=== PATIENT | female | born 1955 | race African-American/Black ===

== ENCOUNTER 2017-02-14 10:31 | Emergency (ER) | payer OTHER ==
[~2017-02-14] VITALS: Ht 167.6 cm; Wt 98.2 kg
[~2017-02-14 10:31] MED LIST: ATEN-138 PO; LIRA0.6P SQ; LISI10TA PO; glyburide PO; neurontin PO
[2017-02-14 10:51] VITALS: Ht 167.6 cm; Wt 98.2 kg
--- NOTE | 2017-02-14 13:24 | RADRPT ---
PROCEDURE: US Lower extremity Venous. CLINICAL INDICATION: Right leg pain TECHNIQUE: Multiple sonographic images of the right lower extremity deep venous system was obtaine d utilizing grayscale, color-flow, compressive sonography and doppler imaging with augmentation. Th e images were reviewed on a PACS workstation. COMPARISON: None. FINDINGS: There is normal compressibility and flow within the right common femoral, femoral, posterior tibial, peroneal and popliteal veins. RPTAT: AA IMPRESSION: No sonographic evidence for deep venous thrombosis. .Ran Webster MD, MD Date Time Electronically viewed and signed by .Ran Webster MD, MD on 02/14/2017 13:24 .S/
--- NOTE | 2017-02-14 13:40 | RADRPT ---
PROCEDURE: XR Foot 3 Views. CLINICAL INDICATION: Right foot pain TECHNIQUE: AP, oblique and lateral views of the right foot were obtained. The images were reviewe d on a PACS workstation. COMPARISON: None. FINDINGS: Diffuse osteopenia is identified. The osseous structures appear intact. No destructive bony lesion s are identified. Interosseous spaces are normal. Moderate sized plantar calcaneal heel spur is see n. Small Achilles insertion heel spur is noted. Soft tissues surrounding the foot appear unremarkab le. IMPRESSION: Osteopenia. Plantar calcaneal and Achilles insertion heel spurs. If further characterization is needed CT or MRI could be helpful. RPTAT: AA .Willie Mclain MD, MD Date Time Electronically viewed and signed by .Wilile Mclain MD, on 02/14/2017 13:40 .P/
--- NOTE | 2017-02-14 13:42 | RADRPT ---
PROCEDURE: XR Foot 3 Views. CLINICAL INDICATION: Left foot pain TECHNIQUE: AP, oblique and lateral views of the left foot were obtained. The images were reviewed on a PACS workstation. COMPARISON: None. FINDINGS: Diffuse osteopenia is identified. The osseous structures appear intact. 10 mm calcification is rhett ntified adjacent to the tip of the lateral malleolus. No destructive bony lesions are identified. Mild narrowing of the metatarsal phalangeal joint is seen. Small plantar calcaneal and Achilles ins ertion heel spurs are noted. Soft tissues surrounding the foot appear unremarkable. IMPRESSION: Osteopenia. Corticated calcification adjacent to the tip of the medial malleolus. This could reflect heterotopi c calcification, ligamentous calcification or potentially the sequelae of nonunion of an old fractur e. If further characterization is needed CT could be helpful. Mild degenerative changes at the first metatarsal phalangeal joint. If further characterization is needed CT or MRI could be helpful. RPTAT: AA .Willie Mclain MD, MD Date Time Electronically viewed and signed by .Willie Mclain MD, on 02/14/2017 13:42 .P/
--- NOTE | 2017-02-14 13:44 | ERD ---
ER Documentation Chief Complaint Date/Time DATE: 02/14/17 TIME: 13:41 Chief Complaint BILATERAL FOOT PAIN, HX DIABETES HPI This is a very pleasant 61-year-old female history of diabetes, peripheral neuropathy presents with bilateral foot pain. The patient describes bilateral foot pain for several weeks. She has noted intermittent swelling to the right lower extremity without calf pain. No recent travel or immobilization. The pain is mostly to the plantar surface of the bilateral feet. She denies any trauma, fevers or chills or wounds. ROS All systems reviewed and are negative except as per history of present illness. Medications Home Meds Reported Medications [neurontin] 300 MG No Conflict Check, PO TID 04/24/13 Lisinopril* (Prinivil*) 10 Mg Tablet, PO DAILY 04/24/13 [glyburide] 10 MG No Conflict Check, PO BID 04/24/13 Liraglutide (Victoza 2-Sachin) 0.6 Mg/0.1 Ml Pen.injctr, 0.6 MG SQ DAILY 10/01/11 Atenolol (Tenormin) 25 Mg Tab, PO DAILY, 0 Refills 06/19/10 Allergies Allergies: Coded Allergies: Penicillins (Verified Allergy, Unknown, 07/31/14) PMhx/Soc History of Surgery: Yes (CHOLECYSTECTOMY, OVRAIAN CYST REMOVAL) Anesthesia Reaction: No Hx Neurological Disorder: Yes (NEUROPATHY) Hx Respiratory Disorders: No Hx Cardiac Disorders: Yes (HTN) Hx Psychiatric Problems: Yes (ANXIETY/DEPRESSION) Hx Miscellaneous Medical Probl: Yes (SEASONAL ALLERGIES) Hx Alcohol Use: No Hx Substance Use: No Hx Tobacco Use: No FmHx Family History: diabetes Physical Exam Vitals Vital Signs Date Time Temp Pulse Resp B/P Pulse Ox O2 Delivery O2 Flow Rate FiO2 02/14/17 10:51 98.8 72 16 154/78 96 Physical Exam General: Well developed, well nourished, no acute distress Head: Normocephalic, atraumatic. Eyes: Pupils equally reactive, EOM intact ENT: Moist mucous membranes Neck: Supple, no lymphadenopathy Respiratory: Lungs clear bilaterally, no distress Cardiovascular: RRR, no murmurs, rubs, or gallops Abdominal: Soft, non-tender, non-distended, no peritoneal signs : Deferred MSK: Bilateral feet are well-appearing without return of the skin. 2+ dorsalis pedis and posterior tibial pulses. No temperature deficits. Negative Homans sign bilaterally. No unilateral swelling. No edema. No bony abnormalities but soft tissue tenderness along the plantar surface of bilateral feet. Neurologic: Alert and oriented, moving all extremities, normal speech, no focal weakness, no cerebellar signs Skin: No rash Psych: Normal mood Procedures/MDM EKG, MONITORS, & DIAGNOSTIC IMAGING: Lower extremity duplex: Right: No evidence of DVT X-ray right foot: I reviewed and interpreted multiple views of the x-ray Bones: No evidence of acute fracture dislocation or subluxation Soft tissue: No evidence of foreign body X-ray left foot: I reviewed and interpreted multiple views of the x-ray Bones: No evidence of acute fracture dislocation or subluxation Soft tissue: No evidence of foreign body MEDICAL DECISION MAKING: Clinical exam is most consistent with likely peripheral neuropathy secondary to diabetes. No signs or symptoms of breakdown. Lower clinical concern for Charcot joint so x-ray imaging would be appropriate. Also low concern for DVT though the patient did note intermittent swelling to the right lower extremity. Lower extremity duplex would be appropriate. The patient has good pulses, no evidence of venous thrombus or embolic process. Outpatient follow-up with primary care physician and possible podiatry would be reasonable. The patient was informed of this. Her pain is well controlled at this time. ER COURSE: Duplex imaging and x-ray imaging is negative. The patient has been referred to primary care physician. She also follows with a student officer, follow-up was recommended. I kept the patient and/or family informed of laboratory and diagnostic imaging results throughout the emergency room course. DISPOSITION PLAN: We discussed follow up with the patient's primary care doctor within 24 to 48 hours as needed. We also discussed return to the emergency room for worsening symptoms or worsening condition. Outpatient referral: Podiatry, primary care The patient currently takes gabapentin. Consider increasing dose though conversation with primary care physician initially. Departure Diagnosis: Primary Impression: Diabetic peripheral neuropathy Condition: Stable HARVEY TEAGUE MD Feb 14, 2017 13:44
== END 2017-02-14 14:03 | disposition home or self-care (01) ==
LOC: FTE 10:31
DX: E11.40 Type 2 diabetes mellitus with diabetic neuropathy, unspecified (principal); I10 Essential (primary) hypertension
CPT/HCPCS: 73630; 93971; Z7502